=== PATIENT | male | born 1980 | race Caucasian/White ===

== ENCOUNTER 2024-08-22 15:52 | Emergency (ER) | payer OTHER, SELFPAY ==
[2024-08-22 15:54] VITALS: BP 153/81; PULSE 97; RESP 12; TEMP 36.8; O2SAT 99
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
[2024-08-22] MEDS: Acetaminophen 325 MG TAB 650 MG PO (16:19)
[2024-08-22] MEDS: Lidocaine/Epinephri/Tetracaine Topical Gel 3 ML TP (16:19)
--- OUTSIDE RECORDS SUMMARY | 2024-08-22 16:50 | XMS_ITS | Clinical Summary ---
Author Organization [facility] Address [address] [place] [address] Phone Care Team Providers Care Drafter Structural Name Role Phone Niesha LEAL, Maria De Jesus Rodgers [phone] Conditions or Problems Problem Name Problem Code Onset Date Status Entry Date Provider Comment Standard Description Annotate EUSTACHIAN TUBE DYSFUNCTION 96727336 (SNOMED CT) 06/06 Active 06/12 Maria De Jesus Scherer MD Dysfunction of eustachian tube SWIMMER'S EAR OF LEFT SIDE, UNSPECIFIED CHRONICITY 1806578 (SNOMED CT) 06/06 Inactive 06/12 Maria De Jesus Scherer MD Otitis externa RIGHT OTITIS MEDIA 78059535 (SNOMED CT) 01/09 Inactive 01/23 Catherine Adhikari STONE FINISHER Otitis media HEALTH CARE MAINTENANCE EXAM 354593681 (SNOMED CT) 12/02 Active 12/02 Sadia Werner MD Comprehensive interview and evaluation ONYCHOMYCOS IS 181975591 (SNOMED CT) Active Sadia Werner MD Onychomycosis CERVICAL RADICULOPAT HY 33508023 (SNOMED CT) Active Sadia Werner MD Cervical radiculopathy SEROUS OTITIS MEDIA H65.00 (ICD-10-CM ) 02/04 Inactive 02/05 Sadia Werner MD Acute serous otitis media, unspecified ear INFLUENZA 487.8 (ICD-9-CM) 12/02 Resolved 12/02 Sadia Werner MD Influenza with other manifestations INFLUENZA 487.8 (ICD-9-CM) 12/02 Removed 12/02 Sadia Werner MD Influenza with other manifestations HEALTH CARE MAINTENANCE 51107902 (SNOMED CT) 12/02 Inactive 12/02 Sadia Werner MD History AND physical examination Medications Medication Instructions Start Date Stop Date Generic Name NDC Provider VENTOLIN HFA 108 (90 Base) MCG/ACT AERS 1 puff four times a day as needed albuterol sulfate 19293216081 Maria De Jesus Scherer MD CIPRO HC 0.2-1 % SUSP Instill 3 drop into left ear twice a day ciprofloxacin-hyd rocortisone 00933522211 Maria De Jesus Scherer MD AMOXICILLIN-PO T CLAVULANATE 875-125 MG TABS Take 1 tablet by mouth twice a day with meals amoxicillin-pot clavulanate 00238634376 Catherine DiTommaso STONE FINISHER CICLOPIROX 8 % SOLN laquer to affected toenails every 7 days; then remove and reapply ciclopirox 29989961906 Sadia Werner MD ProAir HFA 90 mcg/actuation HFA aerosol inhaler 2 puff every four hours as needed albuterol sulfate 31426531385 Sadia Werner MD QVAR 40 MCG/ACT INHALATION AEROSOL SOLUTION 2 puff twice a day QVAR 40 MCG/ACT INHALATION AEROSOL SOLUTION Sadia Werner MD VENTOLIN HFA 108 (90 Base) MCG/ACT AERS 1 puff four times a day as needed albuterol sulfate 25986616210 Sadia Werner MD AUGMENTIN 875-125 MG ORAL TABLET Take one tablet by mouth twice daily AMOXICILLIN-POT CLAVULANATE 04700416671 Sadia Werner MD PROAIR HFA 108 (90 BASE) MCG/ACT INHALATION AEROSOL SOLUTION 2 puffs every 4 hours as needed for asthma ALBUTEROL SULFATE 77710608685 Sadia Werner MD QVAR 40 MCG/ACT INHALATION AEROSOL SOLUTION 2 puffs bid BECLOMETHASONE DIPROPIONATE 47585960610 Sadia Werner MD VENTOLIN HFA 108 (90 Base) MCG/ACT AERS one puff qid prn asthma ALBUTEROL SULFATE 40310993853 Sadia Werner MD AMOXICILLIN 500 MG CAPS take one by mouth three times daily AMOXICILLIN 18116808869 Sadia Werner MD CICLOPIROX 8 % SOLN laquer to affected toenails every 7 days; then remove and reapply CICLOPIROX 47502362766 Sadia Werner MD Medications Administered No information available. Allergies, Adverse Reactions, Alerts Observed No Known Drug Allergies at Results Date Name Value Unit Range Flag Description Lab Report: THYROXINE (T4) T4, TOTAL 7.20 ug/dL 4.50-10.90 Thyroxin e (T4) [Mass/volume] in Serum or Plasma Lab Report: GLUCOSE,FASTING BG FASTING 78 mg/dL 70-105 blood gluc ose, fasting Lab Report: IRON AND TIBC IRON SATUR % 24 % 17-50 Iron sat uration [Mass Fraction] in Serum or Plasma TIBC 291 ug/dL 151-538 Iron binding capacity [Mass/volume] in Serum or Plasma IRON 69 ug/dL 31-161 Iron [Mass/vo lume] in Serum or Plasma Lab Report: COMPLETE BLOOD C OUNT MPV 8.4 UM*3 fL 7.4-10.4 Platelet me an volume [Entitic volume] in Blood by Shashank RDW 13.4 % 11.5-14.5 Erythrocyte distribution width [Ratio] by Automated count MCHC 33.8 % 31.0-35.5 MCHC [Mass/ volume] by Automated count MCH 30.6 pg 26-34 MCH [Entitic mass] by Automated count MCV 90.5 fL 80-99 MCV [Entitic volume] by Automated count RBC 5.64 10*6/mm3 3.9-5.5 H Erythrocytes [#/volume] in Blood by Automated count BASOPH COUNT 0.0 10*3/mm3 0-0.30 Basophi ls [#/volume] in Blood by Manual count EOS COUNT 0.1 10*3/mm3 0-0.45 eosinophil count, blood MONOCYTE CNT 0.4 10*3/mm3 0-0.8 monocyt e count, blood LYMPH COUNT 1.6 10*3/mm3 1.5-4.0 lymphocy te count, blood NEUTRO COUNT 2.7 10*3/mm3 1.8-7.7 neutrop hil count, blood BASOPHIL % 0.5 % 0-3 Basophils/ 100 leukocytes in Blood by Manual count EOSINOPHIL % 3.1 % 0-8 Eosinoph ils/100 leukocytes in Blood by Manual count MONOCYTE % 8.9 % 0-12 Monocytes/ 100 leukocytes in Blood by Automated count LYMPHS % 32.1 % 20-44 Lymphocytes/ 100 leukocytes in Blood by Automated count PMN % 55.4 % 41-75 Neutrophils/1 00 leukocytes in Blood by Automated count PLATELETS 276 10*3/mm3 140-440 Platelets [#/volume] in Blood by Automated count HCT 51.0 % 39.8-52.0 Hematocrit [Volume Fraction] of Blood by Automated count HGB 17.3 g/dL 13.6-16.1 H Hemoglobin [Mass/volume] in Blood WBC 4.9 10*3/mm3 4.0-10.0 Leukocytes [#/volume] in Blood by Automated count Plan of Care Type Date Detail Pending order Patient encounte r procedure Pending order Patient encounte r procedure Pending order SARS COV 2 RT PC R Pending order Comprehensive Me tabolic Panel Pending order COMPLETE BLOOD C OUNT WITH DIFF Pending order [facility] Allergy [facility] Pending order Lipid Panel Pending order Complete Blood C ount (CBC) Pending order Basic Metabolic Panel Pending order TSH (w/reflex) Pending order Lipid Panel Pending order Comprehensive Me tabolic Panel Pending order Complete Blood C ount (CBC) Pending order Lipid Panel Pending order TSH (w/reflex) Procedures Code Procedure Name Date Entry Date [facility]-[id number] Patient encounter procedure COMMP Comprehensive Metabolic Panel CBCD COMPLETE BLOOD COUNT WITH DIFF [facility] - [place] LIPID Lipid Panel CBC Complete Blood Count (CBC) 2 TSH TSH (w/reflex) LIPID Lipid Panel BASMP Basic Metabolic Panel 03/19 TSH TSH (w/reflex) CBC Complete Blood Count (CBC) 2 COMMP Comprehensive Metabolic Panel LIPID Lipid Panel Vital Signs Date Name Value Unit Description BMI (Body Mass Index) 28.09 kg/m2 Bod y Mass Index (Ratio) BP Diastolic 68 mm[Hg] blood pressu re, diastolic BP Systolic 124 mm[Hg] blood pressur e, systolic Body Temperature 97.8 [degF] temperat ure E&M Heart Rate 65 /min pulse rate O2 % BldC Oximetry 98 pulse oximetry, first reading Weight Measured 222.4 [lb_av] weight E& M Height 74.75 [in_us] height E&M BP Diastolic 88 mm[Hg] blood pressu re, diastolic, second observation BP Systolic 130 mm[Hg] blood pressur e, systolic, second observation Immunizations Vaccine Administration Date Standard Description CVX Co de Dose flu vax flu vax 141 Unknown Pfizer COVID-19 Vaccine 208 U nknown Pfizer COVID-19 Vaccine 208 U nknown Pfizer COVID-19 Vaccine 208 U nknown Advance Directives No information available.
--- OUTSIDE RECORDS SUMMARY | 2024-08-22 16:51 | XMS_ITS | Encounter Summary ---
Author Organization [facility] Address [phone] [place] [address] Care Team Providers Care Repairer General Name Role Phone Catherine Pablo NP Unavailable [phone] Bertin Calzada MD Primary Care Provider Encounter Details Date Type Department Care Team (Late st Contact Info) Description 07/03/2024 1:15 PM EDT - 07/03/2024 11:59 PM EDT Hospital Encounter [facility] - Diagnostic Radiology, [address] [place] [phone] Radha Hyatt PA-C [address] [place] [phone] [email or web address] Discharge Disposition: Home or Self Care Social History Tobacco Use Types Packs/Day Years Used Date Smoking Tobacco: Never Smokeless Tobacco: Former Comments:A Cigarettes in hig h school and college Alcohol Use Standard Drinks/Week Comments Yes 3 (1 standard drink = 0.6 oz pure alcohol) Last year, around 1 drink a day. Now 1-2 drinks a week Education Answer Date Recorded Are you interested in more education? Not on sav e 04/01/2023 Are you concerned about learning? Not on file 04/01/2023 No 04/01/2023 No 04/01/2023 Digital Access Answer Date Recorded No 04/22/2023 No 04/22/2023 Reliable internet access at home? Not on file 04/22/2023 Device with a working camera? Not on file Sex and Gender Information Value Date Recorded Sex Assigned at Not on file Gender Identity Not on file Sexual Orientation Not on file documented as of this encounter Medications at Time of Discharge Medication Sig Dispensed Refills Start Date End Date fluticasone propionate 110 mcg/actuation inhaler Inhale 2 puffs into the lungs daily as needed. To be used when symptoms present for several days 12 g 04/17/2024 documented as of this encounter Plan of Treatment Upcoming Encounters Date Type Department Care Team (Late st Contact Info) Description 04/13/2025 10:30 AM EDT Appointment [facility] [address] [address] Bertin Calzada MD [address] [phone] [email or web address] 04/22/2025 10:30 AM EDT Office Visit [facility] [address] [place] [phone] Kianna Fermin MD [address] [place] [phone] [email or web address] documented as of this encounter Procedures Procedure Name Priority Date/Time Associated Diagnosis Comments XR KNEE 4 OR MORE VIEWS (RIGHT) Routine 07/03/2024 1:41 PM EDT Pain XR FEMUR (RIGHT) 2 VIEWS Routine 07/03/2024 1:41 PM EDT Pain documented in this encounter Results * XR KNEE 4 OR MORE VIEWS (RIGHT) (07/03/2024 1:41 PM EDT) Anatomical Region Laterality Modality Knee Right Radiographic Briana ging 07/03/2024 5:07 PM EDT Impressions 07/03/2024 5:08 PM EDT Prior open reduction and internal fixation of healed mid femoral fracture. Right knee joint effusion. No fracture. Narrative 07/03/2024 5:08 PM EDT XR FEMUR 2 OR MORE VIEWS (RIGHT), XR KNEE 4 OR MORE VIEWS (RIGHT) Referring clinician's provided indication for this examination in [facility]: Pain COMPARISON: FINDINGS: Postoperative sequelae of open reduction and internal fixation of the RIGHT femur by means of intramedullary breezy. Mild heterotopic ossification adjacent to the greater trochanter. The femoral fracture appears healed. Right hip is normally aligned. The sacrum is partially obscured by stool and bowel gas. 4 views of the RIGHT knee demonstrate joint effusion. No evidence of fracture. Normal alignment. Mild prepatellar soft tissue swelling. Frontal views of the LEFT knee demonstrate no acute osseous abnormality. Procedure Note Flaco Johnson MD - 07/03/2024 XR FEMUR 2 OR MORE VIEWS (RIGHT), XR KNEE 4 OR MORE VIEWS (RIGHT) Referring clinician's provided indication for this examination in [facility]:Pain COMPARISON: FINDINGS: Postoperative sequelae of open reduction and internal fixation of theRIGHT femur by means of intramedullary breezy. Mild heterotopic ossificationadjacent to the greater trochanter. The femoral fracture appears healed.Right hip is normally aligned. The sacrum is partially obscured by stooland bowel gas. 4 views of the RIGHT knee demonstrate joint effusion. No evidence offracture. Normal alignment. Mild prepatellar soft tissue swelling. Frontal views of the LEFT knee demonstrate no acute osseous abnormality. IMPRESSION: Prior open reduction and internal fixation of healed mid femoralfracture. Right knee joint effusion. No fracture. Radha Hyatt PA-C IMG XR LOWER EXTRE MITY * XR FEMUR (RIGHT) 2 VIEWS (07/03/2024 1:41 PM EDT) Anatomical Region Laterality Modality Thigh Right Radiographic Briana ging 07/03/2024 5:07 PM EDT Impressions 07/03/2024 5:08 PM EDT Prior open reduction and internal fixation of healed mid femoral fracture. Right knee joint effusion. No fracture. Narrative 07/03/2024 5:08 PM EDT XR FEMUR 2 OR MORE VIEWS (RIGHT), XR KNEE 4 OR MORE VIEWS (RIGHT) Referring clinician's provided indication for this examination in [facility]: Pain COMPARISON: FINDINGS: Postoperative sequelae of open reduction and internal fixation of the RIGHT femur by means of intramedullary breezy. Mild heterotopic ossification adjacent to the greater trochanter. The femoral fracture appears healed. Right hip is normally aligned. The sacrum is partially obscured by stool and bowel gas. 4 views of the RIGHT knee demonstrate joint effusion. No evidence of fracture. Normal alignment. Mild prepatellar soft tissue swelling. Frontal views of the LEFT knee demonstrate no acute osseous abnormality. Procedure Note Flaco Johnson MD - 07/03/2024 XR FEMUR 2 OR MORE VIEWS (RIGHT), XR KNEE 4 OR MORE VIEWS (RIGHT) Referring clinician's provided indication for this examination in Epic:Pain COMPARISON: FINDINGS: Postoperative sequelae of open reduction and internal fixation of theRIGHT femur by means of intramedullary breezy. Mild heterotopic ossificationadjacent to the greater trochanter. The femoral fracture appears healed.Right hip is normally aligned. The sacrum is partially obscured by stooland bowel gas. 4 views of the RIGHT knee demonstrate joint effusion. No evidence offracture. Normal alignment. Mild prepatellar soft tissue swelling. Frontal views of the LEFT knee demonstrate no acute osseous abnormality. IMPRESSION: Prior open reduction and internal fixation of healed mid femoralfracture. Right knee joint effusion. No fracture. Radha Hyatt PA-C IMG XR LOWER EXTRE MITY documented in this encounter Visit Diagnoses Diagnosis Pain Generalized pain documented in this encounter Additional Health Concerns Assessment Noted Time PHQ-2 Depression Total Score: 0 03/31/20 24 8:54 PM EDT documented as of this encounter Care Teams Repairer General Relationship Specialty Start Date End Date Bertin Calzada MD [address] [phone] [email or web address] PCP - General Internal Medicine 04/01/24 Catherine Pablo NP [address] [place] [phone] [email or web address] Insurance Assigned Provider 03/01/24 07/05/24 documented as of this encounter Additional Source Comments The information contained in this document represents components of the legal health record. It is not the complete legal health record.[facility]
--- OUTSIDE RECORDS SUMMARY | 2024-08-22 16:51 | XMS_ITS | Encounter Summary ---
Author Organization [facility] Address [phone] [place] [address] Care Team Providers Care Roll Plugger Name Role Phone Catherine Pablo NP Unavailable [phone] Bertin Calzada MD Primary Care Provider Encounter Details Date Type Department Care Team (Late st Contact Info) Description 05/15/2024 1:00 PM EDT [facility] [address] [address] Wendy Hassan, OD [address] [place] [address] [email or web address] Allergic conjunctivitis, bilateral (Primary Dx); Allergic conjunctivitis of both eyes Social History Tobacco Use Types Packs/Day Years [...] on file documented as of this encounter Progress Notes * Wendy Hassan, OD - 05/15/2024 1:00 PM EDT Assessment Allergic conjunctivitis - symptomatic, OS>OD Plan Patient recommended to use cold compress PRN, artificial tears qid both eyes and anti-allergy eye drops (Pataday qd both eyes). RTC if no improvement in 2 weeks. D/c antibiotic use. Follow Up Dr. Hassan for complete eye exam, PRN with any changes or problems. Ocular History Corneal abrasion left eye (10 y.a.) Cellulitis right eye (2 years ago) documented in this encounter Plan of Treatment Upcoming Encounters Date Type Department Care Team (Late st Contact Info) Description 04/13/2025 10:30 AM EDT Appointment [facility] [address] [address] Bertin Calzada MD [address] [address] [email or web address] 04/22/2025 10:30 AM EDT Office Visit [facility] [employer] [address] [address] Kianna Fermin MD [address] [place] [phone] [email or web address] documented as of this encounter Visit Diagnoses Diagnosis Allergic conjunctivitis, bilateral- Primary Other chronic allergic conjunctivitis Allergic conjunctivitis of both eyes Other chronic allergic conjunctivitis documented in this encounter Additional Health Concerns Assessment Noted Time PHQ-2 Depression Total Score: 0 03/31/20 24 8:54 PM EDT documented as of this encounter Care Teams Roll Plugger Relationship Specialty Start Date End Date Bertin Calzada MD [address] [address] [email or web address] PCP - General Internal Medicine 04/01/24 Catherine Pablo NP [address] [place] [phone] [email or web address] Insurance Assigned Provider 03/01/24 07/05/24 documented as of this encounter Additional Source Comments The information contained in this document represents components of the legal health record. It is not the complete legal health record.[facility]
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
--- OUTSIDE RECORDS SUMMARY | 2024-08-22 16:52 | XMS_ITS | Encounter Summary ---
Author Organization [facility] Address [address] [place] [address] Care Team Providers Care Rfid Systems Architect Name Role Phone Pcp, No Unavailable Unavailable Reason for Visit * Reason Comments Otalgia Encounter Details Date Type Department Care Team (Latest Contact Info) Description 06/12/2022 3:05 PM EDT - 06/12/2022 4:14 PM EDT Hospital Encounter [facility] [address] [place] [phone] Discharge Disposition: Home or Self Care Social History Tobacco Use Types Packs/Day Years Used Date Smoking Tobacco: Never Smokeless Tobacco: Never Sex and Gender Information Value Date Recorded Sex Assigned at Not on file Gender Identity Not on file Sexual Orientation Not on file documented as of this encounter Last Filed Vital Signs Vital Sign Reading Time Taken Comments Blood Pressure 136/71 06/12/2022 3:09 PM EDT Pulse 51 06/12/2022 3:09 PM EDT Temperature 36.3 ??C (97.3 ??F) 06/12/2022 3:09 PM ED T Respiratory Rate 16 06/12/2022 3:09 PM EDT Oxygen Saturation 100% 06/12/2022 3:09 PM EDT Inhaled Oxygen Concentration 100% 06/12/2022 3 :09 PM EDT Weight 99.8 kg (220 lb) 06/12/2022 3:09 PM EDT Height 190.5 cm (6' 3) 06/12/2022 3:09 PM EDT Body Mass Index 27.5 06/12/2022 3:09 PM EDT documented in this encounter Discharge Instructions * Attachments The following attachments cannot be sent through Care Everywhere. * Serous Otitis Media (Somali) documented in this encounter ED Notes * Winnie Becerra RN - 06/12/2022 4:13 PM EDT Discharged by provider * Federico Del Cid NP - 06/12/2022 3:49 PM EDT History Chief Complaint Patient presents with ??? Otalgia Chief Complaint:lesft ear pain This 42 yo male presents with a c/o left ear pain for a couple weeks.Hearing is somewhat muffled. Denies pain when ear is pulled. He was seen by his PCP last week who reported an effusion to the ear and was told to take Sudafed. He has been taking this daily and it has been providing some relief until today. He was also started on flonase last week and has taken certrizine for a number of months.He had an ear infection last October. Positive for sinus and ear pressure L>R. Denies cough, ear drainage or sinus drainage. Denies fever or chills. History reviewed. No pertinent past medical history. Past Surgical History: Procedure Laterality Date ??? HX FEMUR FRACTURE SURGERY Right No family history on file. Social History Tobacco Use ??? Smoking status: Never Smoker ??? Smokeless tobacco: Never Used Review of Systems Constitutional: Negative for chills and fever. HENT: Positive for ear pain, hearing loss and sinus pressure. Negative for congestion, ear discharge, facial swelling, postnasal drip, sinus pain, sore throat and tinnitus. Eyes: Negative for itching. Respiratory: Negative for cough and shortness of breath. Cardiovascular: Negative for palpitations. Musculoskeletal: Negative for joint swelling. Skin: Negative for rash. Allergic/Immunologic: Negative for environmental allergies. Neurological: Negative for headaches. Psychiatric/Behavioral: Negative for confusion. Physical Exam Triage Vitals [06/12/22 1509] Temperature Heart Rate BP Respirations SpO2 36.3 ??C (97.3 ??F) 51 136/71 16 100 % Physical Exam Constitutional: Appearance: Normal appearance. He is normal weight. He is not ill-appearing. HENT: Head: Normocephalic and atraumatic. Right Ear: Tympanic membrane, ear canal and external ear normal. There is no impacted cerumen. Left Ear: Ear canal and external ear normal. A middle ear effusion is present. There is no impactedcerumen. Tympanic membrane is not erythematous. Ears: Comments: TM willett and loose appearing. No perforation or drainage noted. Nose: Nose normal. No congestion. Mouth/Throat: Mouth: Mucous membranes are moist. Pharynx: Oropharynx is clear. No oropharyngeal exudate or posterior oropharyngeal erythema. Eyes: Pupils: Pupils are equal, round, and reactive to light. Cardiovascular: Rate and Rhythm: Normal rate. Pulmonary: Effort: Pulmonary effort is normal. Musculoskeletal: Cervical back: Normal range of motion. Skin: General: Skin is warm and dry. Neurological: Mental Status: He is alert and oriented to person, place, and time. Studies / ED Course Procedures MDM (ED Course and Disposition) Assessment and Plan This is a 42 y.o. male with left ear pain. MDM: This well appearing afebrile male presents c/o ongoing left ear pain for the past 2 weeks. Use of Sudafed and flonase since visit with PCP last week provided some relief to the pain and pressure until today. Exam unremarkable for infection, perforation or other complication at this time. Still has a mild effusion. Patient appears stable for discharge and verbalized understanding of home care, follow-up with PCP and ENT, and return precautions. ED CRITICAL CARE: Critical Care: No Diagnosis: Encounter Diagnosis Name Primary? Acute serous otitis media of left ear, recurrence not specified Yes Disposition: Discharged Federico Del Cid NP 06/12/221930 Sia Bautista MD 06/13/22 0456 Associated attestation - Sia Bautista MD - 06/13/2022 4:56 AM EDT Patient seen by Emergency Department Nurse Practitioner Federico Del Cid NP. I agree with the disposition and plan as documented. * Winnie Becerra RN - 06/12/2022 3:24 PM EDT Three plus weeks of left ear discomfort. Saw PCP last week. Has taken sudafed, then PCP prescribed cipro ear drops. Now continues with dull pain, fullness. documented in this encounter Plan of Treatment Not on file documented as of this encounter Visit Diagnoses Diagnosis Acute serous otitis media of left ear, recurrence not specified- Primary documented in this encounter Care Teams Rfid Systems Architect Relationship Specialty Start Date End Date Pcp, No PCP - Generic [facility] PCP 06/12/22 documented as of this encounter
--- OUTSIDE RECORDS SUMMARY | 2024-08-22 16:52 | XMS_ITS | Encounter Summary ---
Author Organization [employer] [facility] Address [address] [place] [address] Care Team Providers Care Manager Online Name Role Phone Sadia Werner MD Primary Care Provide r Reason for Visit * Reason Comments Eyes Encounter Details Date Type Department Care Team (Late st Contact Info) Description 02/27/2023 10:10 AM EDT Office Visit [id number] [address] [place] [address] Liza Gifford NP [address] [place] [address] Hordeolum internum of right upper eyelid [H00.021] (Primary Dx) Social History Tobacco Use Types Packs/Day Years Used Date Smoking Tobacco: Never Smokeless Tobacco: Never Tobacco Cessation:Counseling Given: Not Answered Sex and Gender Information Value Date Recorded Sex Assigned at Not on file Gender Identity Not on file Sexual Orientation Not on file documented as of this encounter Last Filed Vital Signs Vital Sign Reading Time Taken Comments Blood Pressure 118/78 02/27/2023 10:33 AM EDT Pulse 62 02/27/2023 10:33 AM EDT Temperature 36.6 ??C (97.8 ??F) 02/27/2023 10:33 AM E DT Respiratory Rate 16 02/27/2023 10:33 AM EDT Oxygen Saturation 99% 02/27/2023 10:33 AM EDT Inhaled Oxygen Concentration - - Weight - - Height - - Body Mass Index - - documented in this encounter Functional Status Functional Status Response Date of Assess ment Is the person deaf or does h e/she have serious difficulty hearing? Is this person blind or does he/she have serious difficulty seeing even when wearing glasses? Does this person have seriou s difficulty walking or climbing stairs? Does this person have difficulty dressing or bat amandeep? Because of a physical, menta l, or emotional condition, does this person have difficulty doing errands alone such as visiting a doctor's office or shopping? Cognitive Status Response Date of Assessm ent Because of a physical, menta l, or emotional condition, does this person have serious difficulty concentrating, remembering, or making decisions? documented as of this encounter Patient Instructions * Patient Instructions* Liza Gifford NP - 02/27/2023 10:10 AM EDT Images from the original note were not included. /[id number] Minor Eye Disorders Seek immediate medical care if you have: ??? Vision changes ??? Pain in the eye or feeling like something is in your eye ??? Photophobia (sensitive to light) ??? New or increased eye discharge What is a stye? A stye (hordeolum) is a bacterial infection of the tiny glands at the base of an eyelid. Styes are more commonly seen in children and adolescents. What causes styes? They are typically caused by bacteria and may develop due to poor hygiene habits, using cosmetics, or leaving eye makeup on overnight. What are the symptoms of a stye? Tenderness ??? Redness and swelling of the eyelid. ??? Often a red bump is visible on the eyelid ??? There can be itching and burning of the eyelid. What is blepharitis? Blepharitis is a chronic (long-term) inflammatory condition that affects the eyelids. What are the symptoms of blepharitis? Itching, burning, crusting and scaling along eyelid border. What is a chalazion? A chalazion is a hard, painless bump that gradually develops on the eyelid over a few weeks??? time. It often occurs on the upper lid. What is the treatment for styes, blephartitis and chalazions? The most common treatment is good eyelid hygiene (cleansing with mild soap such as diluted baby shampoo four times per day). ??? Warm, moist compresses can also be used on the affected eye(s) for 15 minutes, four times per day. o If you are treating both eyes, use separate clean compresses ??? Sometimes antibiotic ointment will be prescribed, be sure to continue the medicine for as long as it is prescribed. o If prescribed antibiotic eye ointment or eye drops, try not to touch the dropper bottle or tip ofthe tube to the eye. By doing so, you prevent contaminating the medication application device. ??? Perform good hand hygiene and keep hands away from your eyes to prevent spreading the infection. ??? Do not squeeze a stye. This may cause the infection to spread to the tissue around the eye. ??? If you wear contact lenses, stop wearing contacts during an infection. Do not resume wearing contacts until the eye infection is resolved and/or you have finished your antibiotics. Seek immediate emergency medical attention: for changes in vision, eye pain, sensitivity to light, increased drainage, difficulty swallowing, stiff neck, shortness of breath, coughing up blood, chestpain or increased fever. Seek medical attention immediately if redness spreads or your eyelid swells quickly. Go immediately to ER for visual changes, increased pain in the eye, sensitivity to light with othersymptoms, or increase in eye discharge. documented in this encounter Progress Notes * Liza Gifford NP - 02/27/2023 10:10 AM EDT Subjective: Patient ID: Martin Vicente is a 42 y.o. male. HPI Here with stye in right eye upper eye lid that started Sunday02/24/23 Also had stye on right lower eyelid that started at the same time but reports that that one has resolved Is otherwise well and denied additional concerns Used refresh with some improvement in dryness Denied fever or feeling feverish Had white discharge on lower stye- resolved Does not wear glasses or contacts Eyes Patient presents with: stye Chronicity: New Affected eye: Right eye Duration of current symptoms: 4 days Frequency: Constant Timing: Gradually worsening Related to injury?: No Associated symptoms: eye itching, eye swelling (eyelid swelling ), eye tearing and stye Associated symptoms: no blind spots, no blurred vision, no decreased vision, no decreased visual acuity, no distorted vision, no double vision, no flashing lights, no floaters, no fluctuating vision,no hazy vision, no transient vision loss, no vision loss, no limited eye movement, no eye pain, no foreign body sensation, no foreign body, no bruising, no discharge, no photophobia, no eye redness, no rash, no aura, no headache, no migraine headaches, no nausea, no numbness, no tingling, no vomiting, no weakness, no sinusitis, no postnasal drip and no recent URI Review of Systems Constitutional: Negative for chills, diaphoresis and fever. HENT: Negative for postnasal drip. Eyes: Positive for itching. Negative for blurred vision, double vision, photophobia, pain, discharge, redness and visual disturbance. Respiratory: Negative for shortness of breath. Cardiovascular: Negative for chest pain. Gastrointestinal: Negative for nausea and vomiting. Musculoskeletal: Negative for neck pain and neck stiffness. Skin: Negative for rash. Neurological: Negative for dizziness, weakness, light-headedness and headaches. Social History Tobacco Use Smoking Status Never Smokeless Tobacco Never History reviewed. No pertinent past medical history. Past Surgical History: Procedure Laterality Date ??? FEMUR SURGERY No family history on file. Objective: Physical Exam Constitutional: Appearance: Normal appearance. HENT: Head: Normocephalic and atraumatic. Eyes: General: Right eye: Hordeolum present. No foreign body or discharge. Left eye: No foreign body, discharge or hordeolum. Extraocular Movements: Extraocular movements intact. Right eye: Normal extraocular motion and no nystagmus. Left eye: Normal extraocular motion and no nystagmus. Conjunctiva/sclera: Conjunctivae normal. Right eye: Right conjunctiva is not injected. No chemosis, exudate or hemorrhage. Left eye: Left conjunctiva is not injected. No chemosis, exudate or hemorrhage. Pupils: Pupils are equal, round, and reactive to light. Comments: Mild erythema and swelling noted around stye of right upper eyelid. No pain upon palpation. No periorbital swelling. No drainage noted. No streaks. PERRLA Cardiovascular: Rate and Rhythm: Normal rate and regular rhythm. Heart sounds: Normal heart sounds. Pulmonary: Effort: Pulmonary effort is normal. No respiratory distress. Breath sounds: Normal breath sounds. Musculoskeletal: Cervical back: Normal range of motion. No rigidity. Skin: General: Skin is warm and dry. Neurological: Mental Status: He is alert and oriented to person, place, and time. Psychiatric: Mood and Affect: Mood normal. Behavior: Behavior normal. Vitals: 02/27/23 1033 BP: 118/78 Pulse: 62 Resp: 16 Temp: 97.8 ??F (36.6 ??C) SpO2: 99% Assessment/Plan: Based on today's visit:history and physical exam only, as no relevant testing deemed necessary patient's visit diagnosis is/includes 1. Hordeolum internum of right upper eyelid [H00.021] Patient does not have a history of chronic conditions identified today Treatment plan includes: Orders Placed: No orders of the defined types were placed in this encounter. Medications ordered this visit Signed Prescriptions Disp Refills ??? ciprofloxacin HCl (CILOXAN) 0.3 % ophthalmic solution 5 mL 0 Si-2 drops in affected eye every 2 hrs while awake for 2 days then every 4 hours while awake for the next 5 days. Current medication list and any new medications prescribed or recommended today were reviewed with the patient and specific instructions were provided Yes Provider Recommendations Patient education Most styes tend to resolve within a week, and tend to improve rapidly once the pus has been drainedaway. OTC pain relievers ibuprofen or Tylenol as directed on box supply may also be taken for discomfort. Avoid touching tip of medication to eye. After using medication for 24 hours, change pillow cases, towels, eye products, and anything else that comes into contact with eyes. Warm or cool compresses, 5-10 minutes 4 times/day with as needed for comfort and until affected site drains. Good hand hygiene. Avoid touching or itching eyes. Eyelid hygiene by cleansing with mild soap. Advised to use a fresh, clean cloth each time. Do not apply eye makeup or lotions until the stye is resolved. Advised to follow-up with PCP or local urgent care with any worsening signs/symptoms, or no improvement with treatment plan within 72 hours. Seek immediatemedical care if you have: ??? Vision changes ??? Pain in the eye or if it feels like something is in your eye (foreign body sensation) ??? Photophobia (sensitive to light) ??? Increase in eye discharge ??? Increased swelling or redness around the eye Discussed with and provided patient/guardian with written instructions regarding diagnosis, treatment plan, recommended follow-up, and signs and symptoms that warrant immediate evaluation and treatment. ?? Informed patient/guardian on indications, proper administration, and possible adverse reactions of prescribed or recommended medications. ? At completion of this visit, the patient verbally demonstrates understanding of diagnosis, treatment plan, recommended follow-up, and has no remaining questions or concerns. Follow up care instructions were provided to and reviewed with the Patient. All questions answered.Patient verbalized understanding of plan of care today. HPI Section HPI provided by Patient I am having Martin Vicente start on ciprofloxacin HCl. documented in this encounter Plan of Treatment Not on file documented as of this encounter Visit Diagnoses Diagnosis Hordeolum internum of right upper eyelid [H00.021]- Primary documented in this encounter Care Teams Manager Online Relationship Specialty Start Date End Date Sadia Werner MD [facility] [address] [place] [phone] PCP - General Internal Medicine 02/27/23 documented as of this encounter
--- OUTSIDE RECORDS SUMMARY | 2024-08-22 16:52 | XMS_ITS | Clinical Summary ---
Author Organization [facility] Address [address] [place] [address] Care Team Providers Care Practice Clinician Name Role Phone Pcp, No Unavailable Unavailable Allergies No known active allergies Medications No known medications Social History Tobacco Use Types Packs/Day Years Used Date Smoking Tobacco: Never Smokeless Tobacco: Never Sex and Gender Information Value Date Recorded Sex Assigned at Not on file Gender Identity Not on file Sexual Orientation Not on file Last Filed Vital Signs Vital Sign Reading [...] Mass Index 27.5 06/12/2022 3:09 PM EDT Plan of Treatment Health Maintenance Due Date Last Done Comments Depression Screening 1992 HIV Screening with Documented Verbal Consent 1995 Hepatitis C Screening 1998 Lipid Screening 2015 TDAP/TD Vaccine 18+ 07/03/2021 07/03/2011, 01/08/2003, 11/09/1994 COVID-19 Vaccine ( season) 2024 Influenza Vaccine (#1) 2024 Hepatitis B Vaccines Completed 05/10/1995, 12/27/1994, 11/09/1994 Pneumococcal: Peds (0-5y) OR At-Risk Patient (6-64y) Aged Out No longer elisirenab monie based on patient's age to complete this topic Care Teams Practice Clinician Relationship Specialty Start Date End Date Pcp, No PCP - Generic [facility] PCP 06/12/22
--- OUTSIDE RECORDS SUMMARY | 2024-08-22 16:52 | XMS_ITS | Encounter Summary ---
Author Organization [facility] Address [phone] [facility] [place] [address] Care Team Providers Care Spreader Operator Name Role Phone Catherine Pablo NP Unavailable Bertin Calzada MD Primary Care Provider Reason for Referral * Consultation (Elective) - Pending Review Specialty Diagnoses / Procedures Referred By Contac t Referred To Contact Dermatology Bertin Calzada MD [address] [address] Email: Kianna Fermin MD [address] [place] [phone] Email: Referral ID Status Reason Start Date Expiration Date V isits Requested Visits Authorized [id number] Pending Review 04/09/2024 04/09/2025 6 6 * Consultation (Elective) - Pending Review Specialty Diagnoses / Procedures Referred By Contac t Referred To Contact Gastroenterology Bertni Calzada MD [address] [address] Email: NW Parent [address] [place] [address] Referral ID Status Reason Start Date Expiration Date V isits Requested Visits Authorized [id number] Pending Review 04/01/2024 04/01/2025 1 1 Reason for Visit * Reason Comments Annual Exam Encounter Details Date Type Department Care Team (Late st Contact Info) Description 04/01/2024 3:30 PM EDT Office Visit [facility] [address] [address] Bertin Calzada MD [address] [address] Routine adult health maintenance (Primary Dx); Need for hepatitis C screening test; Screening for human immunodeficiency virus; Onychomycosis; Seasonal allergies; Mild intermittent asthma without complication Social History Tobacco Use Types Packs/Day Years Used Date Smoking Tobacco: Never Smokeless Tobacco: Former Tobacco Cessation:Counseling Given: Not Answered Comments:A Cigarettes in high school and college Alcohol Use Standard Drinks/Week [...] Sign Reading Time Taken Comments Blood Pressure 110/74 04/01/2024 3:33 PM EDT Pulse 59 04/01/2024 3:33 PM EDT Temperature - - Respiratory Rate - - Oxygen Saturation 98% 04/01/2024 3:33 PM EDT Inhaled Oxygen Concentration - - Weight 104.3 kg (230 lb) 04/01/2024 3:33 PM EDT Height 189.9 cm (6' 2.75) 04/01/2024 3:33 PM ED T Body Mass Index 28.94 04/01/2024 3:33 PM EDT documented in this encounter Patient Instructions * Patient Instructions* Bertin Calzada MD - 04/01/2024 3:30 PM EDT If you do not hear from the specialists below within next 1-2 weeks, please call to schedule Dermatology Providers Practice Address Phone MD Rolf Altamirano MD, MD, MD, MD [facility] [address] [place], [place] [phone] MD Kati Martin MD [facility] [phone] Pebbles Fermin MD [facility] 20 [facility] G15, [facility] [phone] Tommy Ledezma [address] [phone] MD Elizabet Jasso MD, MD Ellen Lacomis, MD Jessica Mosher MD Pamela Norden MD Dylan Waterman MD [facility] 1 [facility] [phone] Tera Hong MD [facility] 65 [facility] 440 [place] [phone] Jim Dale MD [facility] 65 [facility] [address] [place] [phone] Joyce Nunez MD [facility] 1172 [facility] 402 [place] [phone] Evelin Francisco MD [facility] [address] [address] [phone] Neli Ochoa MD [facility] [address] [place], [place] 2, [place] [phone] Bertin Loomis MD [facility] [address] [facility] [address], [facility] 340 [facility] [address], [place] [phone] Smita Leonardo MD, [facility] 332 [facility] [phone] Danelle Rosado [facility] [address] [place] [address], [place] [address] [phone] If you do not hear from the GI department below within next 1-2 weeks, please call to schedule Gastroenterology Providers Practice Address Phone MD Kenyon Spivey MD Richard Curtis, MD Vera Denmark, MD Daria Homenko MD Elissa Kaplan, MD Dennis Lee, MD Benjamin Levitzky, MD Michael O'Donnell MD [facility] [place] [address] [phone] documented in this encounter Progress Notes * Bertin Calzada MD - 04/01/2024 3:30 PM EDT History of Present Illness PCP: Beritn Calzada MD Martin Vicente is a 44 y.o. patient here for a CPE and to establish care Extremely pleasant 44-year-old male here to establish care Last PCP was Brody Werner in [facility] Overall, no significant complaints today, and is looking to reestablish care Patient Active Problem List Diagnosis Date Noted Routine adult health maintenance 04/01/2024 Seasonal allergies 04/02/2024 Mild intermittent asthma without complication 04/02/2024 Onychomycosis 08/28/2016 Past Medical History: Diagnosis Date Allergic rhinitis Really in my 20's I take claritin but do need to revisit ue of inhalers for asthma maintenance - used to larry albuterol and qvar. 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 Cervical radiculopathy 08/28/2016 Eustachian tube dysfunction 06/06/2022 Heart murmur in youth was present but unnecessary to treat Review of Systems Constitutional: Negative for unexpected weight change. Respiratory: Negative for cough and shortness of breath. Cardiovascular: Negative for chest pain and palpitations. Gastrointestinal: Negative for abdominal pain, blood in stool, constipation and diarrhea. Genitourinary: Negative for difficulty urinating and hematuria. Skin: Negative for rash. Neurological: Negative for dizziness and headaches. Current Outpatient Medications Ordered in [facility] Medication Sig beclomethasone (QVAR REDIHALER) 40 mcg/actuation inhaler Inhale 2 puffs into the lungs 2 (two) times a day. To be used when symptoms present for several days No Known Allergies Family Hx: Family Hx reviewed Family History Problem Relation Age of Onset Breast cancer Mother Atrial fibrillation Father Colon cancer Neg Hx Social History Socioeconomic History Marital status: /Civil Union Spouse name: Not on file Number of children: Not on file Years of education: Not on file Highest education level: Not on file Occupational History Not on file Tobacco Use Smoking status: Never Smokeless tobacco: Former Tobacco comments: A Cigarettes in high school and college Vaping Use Vaping Use: never used Substance and Sexual Activity Alcohol use: Yes Alcohol/week: 3.0 standard drinks of alcohol Types: 1 Glasses of wine, 1 Cans of beer, 1 Shots of liquor per week Comment: Last year, around 1 drink a day. 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 HENT: Right Ear: Tympanic membrane normal. Left Ear: Tympanic membrane normal. Eyes: Extraocular Movements: Extraocular movements intact. Conjunctiva/sclera: Conjunctivae normal. Cardiovascular: Rate and Rhythm: Normal rate and regular rhythm. Pulmonary: Effort: Pulmonary effort is normal. Breath sounds: Normal breath sounds. No wheezing or rales. Abdominal: General: There is no distension. Tenderness: There is no abdominal tenderness. Musculoskeletal: General: Normal range of motion. Skin: Comments: Several lentigines on back Neurological: General: No focal deficit present. Mental Status: He is alert and oriented to person, place, and time. ASSESSMENT/PLAN: Problem List Items Addressed This Visit High Routine adult health maintenance - Primary Screening/ Maintenance Depression Screen 03/31/2024 8:54 PM PROMS PHQ-2 Little interest or pleasure in doing things Not at all Feeling down, depressed, or hopeless Not at all PROMs Patient Health Questionnaire Screening Score (PHQ-2) 0 (Minimal-No Depressive Symptoms) HIV Screening/ HCV Screening Lab Results Component Value Date [id number] Negative 04/01/2024 Lab Results Component Value Date HCV ANTIBODY Negative 04/01/2024 ASCVD Overall Risk, Prevention This SmartLink has been updated to reference the ASCVD 2013 equation and not the 2018 equations. The 10-year ASCVD risk score (Laron CARPIO, et al., 2019) is: 0.7% Values used to calculate the score: Age: 44 years Sex: Male Is Non- : No Diabetic: No Tobacco smoker: No Systolic Blood Pressure: 110 mmHg Is BP treated: No HDL Cholesterol: 67 mg/dL Total Cholesterol: 170 mg/dL Prostate Cancer Screening No results found for: PSA, PSATOTSCRN, PSAMON Colorectal Cancer Screening: Will refer for CLS (eligible at age 45; this indicated in referral request), No reported changes inFamily Hx Lung Cancer Screening: Not a candidate Osteoporosis Screening: N/A Immunizations: Advised to stay up to date with yearly COVID and Flu Shots Today, will receive Teanus Refused: None Rest up to Date Diabetes- Screening Hba1c AAA Screening- N/A Skin- Advised to see lithographic stripper at least once per year- referred to derm 2/2 light skin, lentigenes on back Advised to wear seatbelt, use sunscreen and exercise for 150min/wk moderate intensity exercise or 75min/wk of intense exercise Family Hx reviewed Follows routinely with dentist No guns or reported violence at home Relevant Orders CBC and differential (Completed) Comprehensive metabolic panel (Completed) Hemoglobin A1c (Completed) Lipid panel (Completed) TSH with reflex (Completed) Low Mild intermittent asthma without complication Relevant Medications beclomethasone (QVAR REDIHALER) 40 mcg/actuation inhaler Seasonal allergies Allergy/mild asthma it appears like exacerbated by allergy season Last several years, has sparingly used Qvar to help short spurts during allergy season which has been very effective Has used as needed albuterol in past, which made him feel agitated Inquiring about refill Will send to pharmacy Unprioritized Onychomycosis Will continue to apply topical antifungals Other Visit Diagnoses Need for hepatitis C screening test Relevant Orders Hepatitis C antibody, qualitative (Completed) Screening for human immunodeficiency virus Relevant Orders HIV-1/2 antigen/antibody (Completed) Martin will return to clinic in one year , sooner if needed Bertin Calzada MD documented in this encounter Miscellaneous Notes * Assessment & Plan Note - Bertin Calzada MD - 04/02/2024 5:06 AM EDT Associated Problem(s): Seasonal allergies Allergy/mild asthma it appears like exacerbated by allergy season Last several years, has sparingly used Qvar to help short spurts during allergy season which has been very effective Has used as needed albuterol in past, which made him feel agitated Inquiring about refill Will send to pharmacy * Assessment & Plan Note - Bertin Calzada MD - 04/02/2024 5:02 AM EDT Associated Problem(s): Onychomycosis Will continue to apply topical antifungals * Assessment & Plan Note - Bertin Calzada MD - 04/02/2024 5:01 AM EDT Associated Problem(s): Routine adult health maintenance Screening/ Maintenance Depression Screen 03/31/2024 8:54 PM PROMS PHQ-2 Little interest or pleasure in doing things Not at all Feeling down, depressed, or hopeless Not at all PROMs Patient Health Questionnaire Screening Score (PHQ-2) 0 (Minimal-No Depressive Symptoms) HIV Screening/ HCV Screening Lab Results Component Value Date [id number] Negative 04/01/2024 Lab Results Component Value Date HCV ANTIBODY Negative 04/01/2024 ASCVD Overall Risk, Prevention This SmartLink has been updated to reference the ASCVD 2013 equation and not the 2018 equations. The 10-year ASCVD risk score (Laron CARPIO, et al., 2019) is: 0.7% Values used to calculate the score: Age: 44 years Sex: Male Is Non- : No Diabetic: No Tobacco smoker: No Systolic Blood Pressure: 110 mmHg Is BP treated: No HDL Cholesterol: 67 mg/dL Total Cholesterol: 170 mg/dL Prostate Cancer Screening No results found for: PSA, PSATOTSCRN, PSAMON Colorectal Cancer Screening: Will refer for CLS (eligible at age 45; this indicated in referral request), No reported changes inFamily Hx Lung Cancer Screening: Not a candidate Osteoporosis Screening: N/A Immunizations: Advised to stay up to date with yearly COVID and Flu Shots Today, will receive Teanus Refused: None Rest up to Date Diabetes- Screening Hba1c AAA Screening- N/A Skin- Advised to see lithographic stripper at least once per year- referred to derm 2/2 light skin, lentigenes on back Advised to wear seatbelt, use sunscreen and exercise for 150min/wk moderate intensity exercise or 75min/wk of intense exercise Family Hx reviewed Follows routinely with dentist No guns or reported violence at home documented in this encounter Plan of Treatment Upcoming Encounters Date Type Department Care Team (Late st Contact Info) Description 04/13/2025 10:30 AM EDT Appointment [facility] [address] [address] Bertin Calzada MD [address] [address] [email or web address] 04/22/2025 10:30 AM EDT Office Visit [email or web address] [address] [address] Kianna Fermin MD [address] [place] [phone] [email or web address] Scheduled Referrals Name Type Priority Associated Diagnoses Order Schedule Ambulatory referral to [facility] Gastroenterology Outpatient Referral Routine Ordered: 04/01/2024 Ambulatory referral to [facility] Dermatology Outpatient Referral Routine Ordered: 04/01/2024 documented as of this encounter Results * HIV-1/2 antigen/antibody (04/01/2024 5:07 PM EDT) [facility] HIV 1/2 AB/AG Negative Negative [facility] Comment:Test Methodology Raúl he e801 Blood 04/01/2024 5:07 PM EDT 04/01/2024 6:33 PM EDT Bertin Calzada MD LAB BLOOD ORDER ALLIE [facility] [address] [place] [address] * Hepatitis C antibody, qualitative (04/01/2024 5:07 PM EDT) [facility] HCV ANTIBODY Negative Negative [facility] Comment:Test Methodology Raúl he e801 Blood 04/01/2024 5:07 PM EDT 04/01/2024 6:33 PM EDT Bertin Calzada MD LAB BLOOD ORDER ALLIE Performing Organization Address [facility] de Phone Number [facility] [address] [place] [address] * TSH with reflex (04/01/2024 5:07 PM EDT) SCREENING PANEL: TSH 3.36 0.55 - 4.78 uIU/mL [facility] Blood 04/01/2024 5:07 PM EDT 04/01/2024 6:33 PM EDT Bertin Calzada MD LAB BLOOD ORDER ALLIE Performing Organization Address [facility] de Phone Number [facility] [address] [place] [address] * Lipid panel (04/01/2024 5:07 PM EDT) CHOLESTEROL 170 140 - 200 mg/dL [facility] Comment: Desirable: <200 Borderline: 200-239 High: >239 TRIGLYCERIDES 89 0 - 149 mg/dL [facility] Comment: Normal ?<150 mg/dL Border-High ? 150-199 mg/dL High Triglycerides ?200-499 mg/dL Very High Triglycerides ? >=500 mg/dL HDL 67 >40 mg/dL [facility] Comment: Recommendations according to the National Cholesterol Education Program Guidelines: <40 mg/dL: Low (Major risk factor for CHD) >= 60 mg/dL: High (Negative risk factor for CHD) CALCULATED LDL 85 0 - 129 mg/dL [facility] NON-HDL CHOLESTEROL 103 mg/dL [facility] CARDIAC RISK RATIO 2.5 0 - 5 [facility] Blood 04/01/2024 5:07 PM EDT 04/01/2024 6:33 PM EDT Bertin Calzada MD LAB BLOOD ORDER ALLIE Performing Organization Address [facility] de Phone Number [facility] [address] [place] [address] * Hemoglobin A1c (04/01/2024 5:07 PM EDT) HEMOGLOBIN A1C 5.6 4.3 - 5.6 % [facility] Comment: ? Normal 4.3-5.6% Prediabetes 5.7-6.4% Diagnostic for diabetes >6.5% CALC MEAN BLD GLUC 114 mg/dL [facility] Blood 04/01/2024 5:07 PM EDT 04/01/2024 6:33 PM EDT Bertin Calzada MD LAB BLOOD ORDER ALLIE Performing Organization Address [facility] Co de Phone Number [facility] [address] [place] [address] * (ABNORMAL) Comprehensive metabolic panel (04/01/2024 5:07 PM EDT) SODIUM 141 136 - 145 mmol/L [facility] POTASSIUM 4.5 3.5 - 5.2 mmol/L [facility] CHLORIDE 102 95 - 106 mmol/L [facility] CO2 30 20 - 31 mmol/L [facility] BUN 18 9 - 23 mg/dL [facility] CREATININE 1.20 0.50 - 1.30 mg/dL [facility] GLUCOSE 82 74 - 106 mg/dL [facility] ALBUMIN 5.0(H) 3.5 - 4.8 g/dL [facility] TOTAL PROTEIN 7.8 5.7 - 8.2 g/dL [facility] CALCIUM 10.0 8.7 - 10.4 mg/dL [facility] ALKALINE PHOSPHATASE 72 27 - 129 U/L [facility] TOTAL BILIRUBIN 0.4 0.0 - 1.0 mg/dL [facility] AST 30 6 - 40 U/L [facility] ALT 19 10 - 49 U/L [facility] GLOBULIN 2.8 1.9 - 4.1 g/dL [facility] EGFR 76 >60 mL/min/1.7 3m2 [facility] Comment:Estimated glomerular filtration rate calculated using the CKD-EPI refit equation. ANION GAP 9 3 - 17 mmol/L [facility] Blood 04/01/2024 5:07 PM EDT 04/01/2024 6:33 PM EDT Bertin Calzada MD LAB BLOOD ORDER ALLIE [facility] [address] [place] [address] * CBC and differential (04/01/2024 5:07 PM EDT) WBC 4.90 4.0 - 11.0 K/uL [facility] RBC 5.04 4.32 - 5.72 M/uL [facility] HGB 15.4 13.5 - 17.5 g/dL [facility] HCT 45.9 38 - 50 % [facility] PLT 288 135 - 400 K/uL [facility] MCV 91.1 80 - 100 fL [facility] MCH 30.6 27 - 34 pg [facility] MCHC 33.6 31.5 - 36.5 g/dL [facility] RDW 13.2 11.9 - 14.8 % [facility] MPV 10.0 9.7 - 11.9 fl [facility] NRBC 0.00 0 /100 WBCs [facility] DIFF METHOD Auto [facility] NEUTS 62.0 % [facility] LYMPHS 24.7 % [facility] MONOS 8.8 % [facility] EOS 3.3 % [facility] BASOS 1.0 % [facility] Granulocytes, immature (%) 0.2 % [facility] ABSOLUTE NEUTS 3.04 1.8 - 7.5 K/uL [facility] ABSOLUTE LYMPHS 1.21 1 - 4.8 K/uL [facility] ABSOLUTE MONOS 0.43 0.1 - 0.9 K/uL [facility] ABSOLUTE EOS 0.16 0 - 0.4 K/uL [facility] ABSOLUTE BASOS 0.05 0 - 0.2 K/uL [facility] Granulocytes, immature 0.01 0 - 0.1 K/uL [facility] Blood 04/01/2024 5:07 PM EDT 04/01/2024 6:33 PM EDT Bertin Calzada MD LAB BLOOD ORDER ALLIE [facility] [address] [place] [address] documented in this encounter Visit Diagnoses Diagnosis Routine adult health maintenance- Primary Need for hepatitis C screening test Special screening examination for other specified viral diseases Screening for human immunodeficiency virus Special screening examination for other specified viral diseases Onychomycosis Dermatophytosis of nail Seasonal allergies Allergic rhinitis, cause unspecified Mild intermittent asthma without complication documented in this encounter Additional Health Concerns Assessment Noted Time PHQ-2 Depression Total Score: 0 03/31/20 8:54 PM EDT documented as of this encounter Care Teams Spreader Operator Relationship Specialty Start Date End Date Bertin Calzada MD [address] [address] [email or web address] PCP - General Internal Medicine 04/01/24 Catherine Pablo NP [address] [place] [phone] [email or web address] Insurance Assigned Provider 03/01/24 07/05/24 documented as of this encounter Additional Source Comments The information contained in this document represents components of the legal health record. It is not the complete legal health record.[facility]
--- OUTSIDE RECORDS SUMMARY | 2024-08-22 16:52 | XMS_ITS | Encounter Summary ---
Author Organization [facility] Address [phone] [place] [address] Care Team Providers Care Launch Commander [employer] Name Role Phone Catherine Pablo NP Unavailable [phone] Bertin Calzada MD Primary Care Provider Reason for Visit * Reason Comments Med Change Request Encounter Details Date Type Department Care Team ([facility] st Contact Info) Description 04/17/2024 Refill [facility] [address] [address] Bertin Calzada MD [address] [address] [email or web address] Med Change Request Social History Tobacco Use Types Packs/Day Years [...] as of this encounter Progress Notes * Dione Clark - 04/23/2024 8:24 AM EDT Images from the original note were not included. Bertin Calzada MD to Me 04/22/24 6:45 PM Just talked with patient on the phone. Completely asymptomatic now, had just wanted inhaler on hand in case symptoms developed. If symptoms do develop again, he will either pay for the qvar, or reach out to me regarding potentially starting albuterol. * Dione Clark - 04/22/2024 2:12 PM EDT Medication was denied * Dione Clark - 04/22/2024 9:53 AM EDT PA submitted through covermeds nidia vicente ([place]: [id number]) PA * Dione Clark - 04/22/2024 9:44 AM EDT Bertin Calzada MD to Me 04/18/24 11:06 AM Sounds like this inhaler might need a PA? In past he had been on Qvar, that was supposedly too expensive. I wrote for the Fluticasone Propionate yesterday. I just called pharmacy, and they said that I think it needs the PA first? * Jalyn Del Rio - 04/18/2024 9:05 AM EDT Pharmacy comment: Alternative Requested:QUANTITY LIMIT EXCEEDED Rx Care Gap Status - Instructions for Clinical Staff (prescriber discretion applies): n/a Visit Info Last visit: 04/01/2024 Bertin Calzada MD - Internal Medicine [facility] > Requested f/u: Return in about 1 year (around 04/01/2025). Upcoming visit: 04/13/2025 (Bertin Calzada MD - [facility]) ACTIONS TAKEN BY Jalyn Del Rio - Refill protocol passed: no action needed. Asthma / COPD Inhalers Rx Protocol Criteria met; renew for up to 12 months. - fluticasone propionate Visit in the past 14 months: Yes documented in this encounter Plan of Treatment Upcoming Encounters Date Type Department Care Team ([facility] Contact Info) Description 04/13/2025 10:30 AM EDT Appointment [facility] [address] [address] Bertin Calzada MD [address] [address] [email or web address] 04/22/2025 10:30 AM EDT Office Visit [facility] [address] [place] [phone] Kianna Fermin MD [address] [place] [phone] [email or web address] documented as of this encounter Visit Diagnoses Not on filedocumented in this encounter Additional Health Concerns Assessment Noted Time PHQ-2 Depression Total Score: 0 03/31/20 8:54 PM EDT documented as of this encounter Care Teams Launch Commander [employer] Relationship Specialty Start Date End Date Bertin Calzada MD [address] [address] [email or web address] PCP - General Internal Medicine 04/01/24 Catherine Pablo NP [address] [place] [address] [email or web address] Insurance Assigned Provider 03/01/24 07/05/24 documented as of this encounter Additional Source Comments The information contained in this document represents components of the legal health record. It is not the complete legal health record.[facility]
--- OUTSIDE RECORDS SUMMARY | 2024-08-22 16:52 | XMS_ITS | Encounter Summary ---
Author Organization [facility] Address [address] [place] [address] Care Team Providers Care Technology Solutions Architect Name Role Phone Sadia Werner MD Primary Care Provide r Reason for Visit * Reason Comments Constitutional Encounter Details Date Type Department Care Team (Late st Contact Info) Description 11/06/2023 9:30 AM EST Office Visit [id number] [place] [address] Melody Ahumada NP [address] [place] [address] Acute non-recurrent maxillary sinusitis (Primary Dx); Nasal congestion Social History Tobacco Use Types Packs/Day Years Used Date Smoking Tobacco: Never Smokeless Tobacco: Never Tobacco Cessation:Counseling Given: Yes Sex and Gender Information Value Date Recorded Sex Assigned at Not on file Gender Identity Not on file Sexual Orientation Not on file documented as of this encounter Last Filed Vital Signs Vital Sign Reading Time Taken Comments Blood Pressure 124/80 11/06/2023 9:41 AM EST Pulse 77 11/06/2023 9:41 AM EST Temperature 36.8 ??C (98.3 ??F) 11/06/2023 9:41 AM ES T Respiratory Rate 19 11/06/2023 9:41 AM EST Oxygen Saturation 100% 11/06/2023 9:41 AM EST Inhaled Oxygen Concentration - - Weight 102 kg (225 lb) 11/06/2023 9:41 AM EST Height 190.5 cm (6' 3) 11/06/2023 9:41 AM EST Body Mass Index 28.12 11/06/2023 9:41 AM EST documented in this encounter Functional Status Functional [...] this encounter Patient Instructions * Patient Instructions* Melody Segura NP - 11/06/2023 9:30 AM EST Seek immediate emergency medical attention if you experience severe or worsening abdominal pain, difficulty swallowing, stiff neck, shortness of breath, coughing or vomiting up blood, chest pain, increased fever, unexplained weight loss, or blood in stool. If your symptoms do not improve within 72 hours, follow up with [facility] or your primary care provider. If your symptoms are not resolved within 2 weeks, follow up with your primary care provider. If you are taking kcjq-gyx-xqpkwhl medication(s), follow the dosing instructions included in the packaging, unless otherwise instructed by your provider. It is important to notify your primary care provider of all medications you are taking, including vhaw-cla-ykhpcqw medications. /[id number]/vs1 Sinusitis What is a Sinusitis? Sinusitis is redness, soreness and inflammation (or swelling) of the sinuses. The sinuses are air pockets within the bones of your face (above and below your eyes and in the middle of your forehead).Mucus normally drains out of the sinus space and air circulates through by way of your nose. The inflammation with sinusitis traps the air and mucus allowing bacterial and other germs to grow and possibly cause an infection. Causes of sinusitis Most sinus infections are caused by viruses (colds, upper respiratory infections) or allergies. Less common are infections caused by bacteria. Symptoms of sinusitis The symptoms of sinusitis (facial pain or pressure, headache, cough, feeling tired, etc) are similar if your condition is caused by a viral or bacterial infection. Treatment of sinusitis Most cases of sinusitis are related to a viral infection and resolve on their own within 10 days. Viral infections do not require antibiotic treatment however over the counter medications may be recommended to help relieve symptoms such as acetaminophen or ibuprofen for pain, saline sprays to moisten and clean the sinuses and/or decongestants. Take these medicines only as directed by your health care provider. ??? REMEMBER: Do not give aspirin to children because of the association with Camden???s syndrome anddecongestants such as pseudoephedrine (i.e. Sudafed) should not be taken if you have high blood pressure, heart disease, or a history of stroke. Sinusitis caused by a bacterial infection is treated with an antibiotic. These are medicines that will help kill the bacteria causing the infection. Home Care Recommendations: ??? Rest and drink plenty of water/fluids (unless your doctor has told you otherwise) ??? Use a humidifier or run a hot shower to create steam 3-4 times a day for approximately 10 minutes at a time (This helps lessen congestion) ??? Use salt water sprays (saline sprays) as directed ??? Apply a warm, moist washcloth to your face 3-4 times a day ??? If you were prescribed an antibiotic finish it all even if you start to feel better ??? Avoid tobacco smoke and other environmental irritants Seek Medical Care Immediately from your primary care doctor, urgent care center or emergency room, if: ??? You have increasing pain or severe headaches ??? You have nausea, vomiting, or drowsiness ??? You have swelling around your face ??? You have vision problems ??? You have a stiff neck ??? You have trouble breathing ??? You develop a fever of 101.2 or higher. Follow up with your primary care provider if your symptoms get worse or do not improve within 3 to 5 days. documented in this encounter Progress Notes * Melody Segura NP - 11/06/2023 9:30 AM EST Subjective: Patient ID: Martin Vicente is a 43 y.o. male here for a sick visit. HPI Patient presents with sinus pain, nasal congestion, chills, fever (101) last night, body aches and a sore throat. He reports these symptoms started over giving, however he thought the symptoms were improving slowly but 2 days ago his symptoms worsened. Reports his is sick at home as well. He has been taking sudafed and ibuprofen with no effect. Denies any additional symptoms. Constitutional Patient presents with: fever and chills Presenting symptoms: fever, headaches, myalgias and sore throat Presenting symptoms: no fatigue and no rhinorrhea Presenting symptoms comment: Nasal congestion, sinus pain Severity: Moderate Onset quality: Gradual Duration of current symptoms: 14 days Timing: Gradually worsening Chronicity: New Treatments tried: OTC medication Response to treatment: No relief Associated symptoms: chills and nasal congestion Associated symptoms: no abdominal pain, no arthralgias, no chest pain, no decreased appetite, no dizziness, no ear pain, no neck stiffness and no lethargy Risk factors: known exposure to illness or sick contacts Recent travel: None Zika exposure risk: None For patients with Menopausal Symptoms: Associated symptoms: no arthralgias Review of Systems Constitutional: Positive for chills and fever. Negative for activity change, appetite change, decreased appetite, diaphoresis, fatigue and unexpected weight change. HENT: Positive for congestion, sinus pressure, sinus pain and sore throat. Negative for dental problem, drooling, ear discharge, ear pain, facial swelling, hearing loss, mouth sores, nosebleeds, postnasal drip, rhinorrhea, sneezing, tinnitus, trouble swallowing and voice change. Respiratory: Negative. Cardiovascular: Negative. Negative for chest pain. Gastrointestinal: Negative. Negative for abdominal pain. Musculoskeletal: Positive for myalgias. Negative for arthralgias and neck stiffness. Skin: Negative. Neurological: Positive for headaches. Negative for dizziness, weakness and light-headedness. Social History Tobacco Use Smoking Status Never Smokeless Tobacco Never History reviewed. No pertinent past medical history. Past Surgical History: Procedure Laterality Date ??? FEMUR SURGERY History reviewed. No pertinent family history. Objective: Physical Exam Constitutional: General: He is awake. He is not in acute distress. Appearance: Normal appearance. He is not ill-appearing. HENT: Head: Normocephalic and atraumatic. Right Ear: Hearing, tympanic membrane, ear canal and external ear normal. Left Ear: Hearing, tympanic membrane, ear canal and external ear normal. Nose: Congestion present. No rhinorrhea. Right Turbinates: Not enlarged, swollen or pale. Left Turbinates: Not enlarged, swollen or pale. Right Sinus: Maxillary sinus tenderness and frontal sinus tenderness present. Left Sinus: Maxillary sinus tenderness and frontal sinus tenderness present. Mouth/Throat: Lips: [place]. Mouth: Mucous membranes are moist. Pharynx: Oropharynx is clear. Uvula midline. No pharyngeal swelling, oropharyngeal exudate, posterior oropharyngeal erythema or uvula swelling. Tonsils: No tonsillar exudate or tonsillar abscesses. 1+ on the right. 1+ on the left. Eyes: Pupils: Pupils are equal, round, and reactive to light. Cardiovascular: Rate and Rhythm: Normal rate and regular rhythm. Pulses: Normal pulses. Heart sounds: Normal heart sounds. Pulmonary: Effort: Pulmonary effort is normal. No tachypnea or bradypnea. Breath sounds: Normal breath sounds and air entry. No stridor, decreased air movement or transmitted upper airway sounds. No decreased breath sounds, wheezing, rhonchi or rales. Lymphadenopathy: Head: Right side of head: No tonsillar adenopathy. Left side of head: No tonsillar adenopathy. Cervical: No cervical adenopathy. Skin: General: Skin is warm. Neurological: Mental Status: He is alert and oriented to person, place, and time. Psychiatric: Mood and Affect: Mood normal. Behavior: Behavior normal. Behavior is cooperative. Vitals: 11/06/23 0941 BP: 124/80 Pulse: 77 Resp: 19 Temp: 98.3 ??F (36.8 ??C) SpO2: 100% Assessment/Plan: Based on today's visit:history and physical exam only, as no relevant testing deemed necessary patient's visit diagnosis is/includes 1. Acute non-recurrent maxillary sinusitis 2. Nasal congestion Patient does not have a history of chronic conditions. Treatment plan includes: Orders Placed: Orders Placed This Encounter Procedures ??? LumiraDX SARS-COV-2 Rapid Result Antigen Test ??? Influenza Molecular POCT Medications ordered this visit Signed Prescriptions Disp Refills ??? amoxicillin-clavulanate (AUGMENTIN) 875-125 mg tablet 10 tablet 0 Sig: Take 1 tablet by mouth 2 (two) times a day for 5 days Provider Recommendations You should be feeling better within 48 hours of starting an antibiotic, however be sure to finish the full course of the prescribed medication. Do not drink alcohol with while taking antibiotics. Informed patient that it may take up to 2 weeks for the symptoms of acute sinusitis to completely resolve. Advised Infection control (e.g., handwashing, cough/sneezing etiquette, etc.). Symptomatic treatment and management: Plenty of rest and fluids. Alternate Tylenol or Ibuprofen forpain, fever and inflammation. Nasal sprays as advised. For intranasal steroid use: Look down at your toes and spray up your nose. Do not blow your nose for 15 minutes after use. Warm facial packs (e.g., warm washcloth, hot water bottle, or gel pack) applied to face for 5-10 minutes at least 3 timesa day. Avoid multi-symptom cold relief medications due to the risk of over medicating. Seek immediate medical care if the following symptoms develop: ?? Worsening cough ?? Shortness of breath ?? Difficulty breathing ?? Chest pain ?? Inability to swallow, eat, or drink ?? Stiff neck ?? Temperature is greater than 100.4??F ?? Breathing fast (24 breaths/min or faster) ?? Heart rate is greater than 100 ?? Dizziness or weakness At completion of this visit, the patient verbally demonstrates understanding of diagnosis, treatment, and plan. Advised to follow-up at [facility], PCP, or local urgent care with any worsening signs/symptoms, or no improvement with treatment plan within 48 hours. When asked, patient denies any further questions or concerns today. documented in this encounter Plan of Treatment Not on file documented as of this encounter Procedures Procedure Name Priority Date/Time Associated Diagnosis Comments LUMIRADX SARS-COV-2 RAPID RESULT ANTIGEN TEST Routine 11/06/2023 9:48 AM EST Nasal congestion INFLUENZA MOLECULAR POCT Routine 11/06/2023 9:48 AM EST Nasal congestion documented in this encounter Results * LumiraDX SARS-COV-2 Rapid Result Antigen Test (11/06/2023 9:48 AM EST) LumiraDX SARS-COV-2 Rapid Result Antigen Test Negative Negative, Invalid, Not Tested, ERRONEOUS GIL [id number] INTERNAL CONTROLS VALID Yes--Test working appropriately JEFFERY [id number] Expiration Date 06/28/2024 JEFFERY [id number] Lot Number [id number] JEFFERY [id number] LUMIRA TEST BRAND Lumiradx Sars-Cov-2 AG Test GIL [id number] Other 11/06/2023 9:48 AM EST Melody Ahumada MACHINE TOOL ELECTRICIAN POINT OF CARE TEST O RDERABLES Performing Organization Address [facility] de Phone Number JEFFERY [id number] [address] [place] [address] * Influenza Molecular POCT (11/06/2023 9:48 AM EST) POC MOLECULAR INFLUENZA A AGN Negative Negative, Invalid, Not Tested, ERRONEOUS GIL [id number] POC MOLECULAR INFLUENZA B AGN Negative Negative, Invalid, Not Tested, ERRONEOUS GIL [id number] INTERNAL CONTROLS VALID Yes--Test working appropriately JEFFERY [id number] Expiration Date 11/11/2024 JEFFERY [id number] Lot Number [id number] JEFFERY [id number] TEST BRAND NAME _ MOLECULAR FLU ID Now Flu GIL [id number] Other 11/06/2023 9:48 AM EST Melody Ahumada NP POINT OF CARE TEST O RDERANKECHI Performing Organization Address [facility] de Phone Number JEFFERY [id number] [address] [place] [address] documented in this encounter Visit Diagnoses Diagnosis Acute non-recurrent maxillary sinusitis- Primary Nasal congestion Other diseases of nasal cavity and sinuses documented in this encounter Care Teams Technology Solutions Architect Relationship Specialty Start Date End Date Sadia Werner MD [facility] [address] [place] [phone] PCP - General Internal Medicine 02/27/23 documented as of this encounter
--- OUTSIDE RECORDS SUMMARY | 2024-08-22 16:52 | XMS_ITS | Encounter Summary ---
Author Organization [facility] Address [phone] [place] [address] Care Team Providers Care Design Transferrer Name Role Phone Catherine Pablo NP Unavailable Bertin Calzada MD Primary Care Provider Encounter Details Date Type Department Care Team (Late st Contact Info) Description 04/17/2024 Orders Only [facility] [place] [address] [address] Bertin Calzada MD [address] [address] [email or web address] Social History Tobacco Use Types Packs/Day Years [...] on file documented as of this encounter Plan of Treatment Upcoming Encounters Date Type Department Care Team (Late st Contact Info) Description 04/13/2025 10:30 AM EDT Appointment [facility] [place] [address] [address] Bertin Calzada MD [address] [address] [email or web address] 04/22/2025 10:30 AM EDT Office Visit [email or web address] [address] [address] Kianna Fermin MD [address] [place] [address] [email or web address] documented as of this encounter Visit Diagnoses Not on filedocumented in this encounter Additional Health Concerns Assessment Noted Time PHQ-2 Depression Total Score: 0 03/31/20 24 8:54 PM EDT documented as of this encounter Care Teams Design Transferrer Relationship Specialty Start Date End Date Bertin Calzada MD [address] [address] PCP - General Internal Medicine 04/01/24 Catherine Pablo NP [address] [place] [address] Insurance Assigned Provider 03/01/24 07/05/24 documented as of this encounter Additional Source Comments The information contained in this document represents components of the legal health record. It is not the complete legal health record.[facility]
--- OUTSIDE RECORDS SUMMARY | 2024-08-22 16:52 | XMS_ITS | Encounter Summary ---
Author Organization [facility] Address [phone] [facility] [place] [address] Care Team Providers Care Anesthesia Resident Name Role Phone Sadia Werner MD Primary Care Provide r Reason for Visit * Reason Comments Follow-up lt hip * Consultation (Routine) - Closed Specialty Diagnoses / Procedures Referred By Contact Referred To Contact Orthopedic Surgery / Orthopaedic Surgery Diagnoses Harv pilg hmo/ left hip/ no x rays/341/bjc Procedures NEW PATIENT Sadia Werner MD [address] [place] [address] Jimy Elkins MD [address] [place] [address] Email: [email or web address] Referral ID Status Reason Start Date Expiration Date Visits Re quested Visits Authorized [id number] Closed 02/28/2018 02/27/2019 3 3 Encounter Details Date Type Department Care Team (Late st Contact Info) Description 03/04/2018 9:30 AM EDT [facility] [address] [facility] [address] [place] [address] Jimy Elkins MD [address] [place] [address] [email or web address] Pain of left hip joint (Primary Dx) Social History Tobacco Use Types Packs/Day Years Used Date Smoking Tobacco: Never Assessed Sex and Gender Information Value Date Recorded Sex Assigned at Not on file Gender Identity Not on file Sexual Orientation Not on file documented as of this encounter Progress Notes * Jimy Elkins MD - 03/04/2018 9:30 AM EDT Chief Complaint: Chief Complaint Patient presents with ??? Follow-up lt hip Patient name: Martin Vicente : [id number] HPI: The patient is a 37-year-old the athletic male with discomfort involving his left hip that's been present off and on over the last several months. 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 This was treated with an intramedullary nail. 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 Over the winter while he was training he added an Erg machine and noted onset of some discomfort in his left hip. Notes it in the buttock region somewhat in the low back as well as in the groin. To be worsewith athletics although he can cycle without trouble. He has generalized tightness and stiffness. Here primarily to evaluate the status of his hips in view of his exercise regimen. Past medical history has been reviewed in the record including problems, medications, allergies, previous surgery, smoking and etoh history, family history and social history. Review of Systems: General :Negative Respiratory:Negative Cardiovascular : Negative Musculoskeletal: Negative Neurological:Negavtive There were no vitals taken for this visit. There is no height or weight on file to calculate BMI. Ortho Physical Exam: General: Awake and alert and Oriented x3, Mental status: alert, oriented to person, place, and time Skin: normal coloration and turgor, no rashes, no suspicious skin lesions noted. Extremity: Patient is a fit athletic gentleman in no apparent distress. In stance his right hemipelvis is approximately 1.5 cm higher than his left reflecting his femur fracture and femoral overgrowth as a result of the healing of the fracture when he was in his teens. He has some tightness with forward flexion and his hamstrings and feels somewhat on the left side. Resistance to hamstring function reveals some mild tightness in the proximal we'll hamstring on the left. There is visible atrophyof his right quadriceps which has been present since the femoral fracture. Nonantalgic gait. Spine extension and side bending was is minimal lower left sided discomfort. In supine position patient has a negative straight leg raise. Flexion well beyond 90?? as well as adduction and internal rotation, some mild groin sensitivity. This is not present on the right side. Impingement sign is only minimally positive. Dee test is negative. Side lying abduction strength is 5 out of 5. There is no tenderness to palpation about the hip buttock or back. Resistance to active hip flexion reveals no discomfort. Radiographs, MRI, CT, Other tests: Regress obtained in the office today. AP pelvis as well as AP lateral view of the left hip reveal no joint space narrowing, no crossover sign, modest increase in alpha angle on the coronal film measured at about 70-5??. Rotational view reveals normal femoral head neck offset. Assessment: Left hip strain likely related to training issues. No convincing evidence of labral abnormality. Mild propensity towards impingement with a modest cam lesion. Plan: Suggest modify Training regimen. This is occurring already as he is working out in the gym inis back on his bike. See what happens over the next few months. She doesn't issues discussed. He will follow-up on an as-needed basis. documented in this encounter Plan of Treatment Upcoming Encounters Date Type Department Care Team (Late st Contact Info) Description 04/13/2025 10:30 AM EDT [facility] [place] [address] [address] Bertin Calzada MD [address] [address] [email or web address] 04/22/2025 10:30 AM EDT Office Visit [facility] [address] [place] [address] [place] [address] Kianna Fermin MD [address] [place] [address] [place] [address] documented as of this encounter Visit Diagnoses Diagnosis Pain of left hip joint- Primary documented in this encounter Care Teams Anesthesia Resident Relationship Specialty Start Date End Date Sadia Werner MD [email or web address] PCP - General Internal Medicine 02/28/1810/24 documented as of this encounter Additional Source Comments The information contained in this document represents components of the legal health record. It is not the complete legal health record.[facility]
--- OUTSIDE RECORDS SUMMARY | 2024-08-22 16:52 | XMS_ITS | Encounter Summary ---
Author Organization [facility] Address [phone] [address] [place] [address] Care Team Providers Care Print Traffic Manager Name Role Phone Catherine Pablo NP Unavailable [phone] Bertin Calzada MD Primary Care Provider Reason for Visit * Reason Comments Lesion Of Concern * Consultation (Elective) - Pending Review Specialty Diagnoses / Procedures Referred By Ben cruz Referred To Contact Dermatology Bertin Calzada MD [address] [address] Email: Kianna Fermin MD [address] [place] [phone] Email: Referral ID Status Reason Start Date Expiration Date V isits Requested Visits Authorized [id number] Pending Review 04/09/2024 04/09/2025 6 6 Encounter Details Date Type Department Care Team (Late st Contact Info) Description 04/22/2024 10:30 AM EDT Office Visit [facility] [address] [place] [address] Kianna Fermin MD [address] [place] [address] [email or web address] Actinic keratosis (Primary Dx); Lentigo; Onychomycosis Social History Tobacco Use Types Packs/Day Years [...] as of this encounter Progress Notes * Kianna Fermin MD - 04/22/2024 10:30 AM EDT Subjective: Patient ID: Martin Vicente is a 44 y.o. male. HPI New Patient 04/14/2024 FBE, SB Full Body Skin Exam Visit: Pt presents today for general skin examination for skin cancer surveillance and monitoring nevi Pt reports the following areas of concern: Patient notes no specific lesions of concern but has multiple nevi/skin lesions that are difficult to self-monitor. He has toe nail fungus and interested intreatments. Has tried OTC. Dermatology History: Prior h/o skin cancer/AKs include: None Family h/o skin CA includes: Maternal grandmother and aunt both had Melano Current sun protection measures include: sunscreen. History of sunburns: In childhood History of tanning ruelas use: None On going dermatology problem list: skin cancer surveillance Social History: Smoking: No Alcohol: Yes Lives alone? 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 Objective: Physical Exam Well appearing pt in NAD; mood and affect are wnl A full skin examination was performed including scalp, head, eyes, ears, nose, lips, neck, chest, axillae, abdomen, back, buttocks, bilateral upper extremities, bilateral lower extremities, hands, feet, fingers, toes, fingernails, and toenails. All findings within normal limits unless otherwise noted below: - gritty macule on the left suprabrow (1) and nasal dorsum (1) - right dorsal hand with 4 mm blue papule - scattered mckeon macules with moth eaten borders on sun exposed surfaces of the trunk and extremities - yellow discoloration of all 10 toe nails Assessment/Plan: Solar lentigines - Counseled about safe sun practices, including but not limited to sun-avoidance (especially duringpeak hours from 10 AM to 4 PM), UV-tanning bed avoidance, and sun-protection (regular sunscreen useon sun-exposed skin with broad spectrum SPF 30+ reapplied every 2-3 hours, sunglasses use, broad-brimmed hat use, wearing UV-filtering/tightly woven clothing [i.e. Coolibar, DAVEY, UV Skinz]). - Discussed ABCDE criteria, routine self skin exams, and need to report skin lesions that are changing, failing to heal, or otherwise concerning to patient. 2. Blue nevus - Reassurance - Notify me with changes 3. Oncyhomycosis -- Discussion of treatment options (oral antifungal vs topical antifungal vs no treatment) as well as difficulty in treating overall -- After discussion, plan for: --Penlac topically once daily x up to 48 weeks. Will apply to nail and surrounding nail daily and use alcohol swab every 7 days to remove build up of medication. 4. Actinic keratoses Actinically damaged skin (chronic) with actinic keratoses and elevated risk of squamous cell cancer: - sequelae of sun exposure: recommended careful sun protection with broad- spectrum UVB/UVA sunscreens with SPF 30 or greater to minimize risk of future actinic keratoses and lower risk of malignancy over the watermelon harvesting supervisor - Educated the patient on the premalignant nature of these lesions and their low but non-zero likelihood of transformation into skin cancer. - LN2 was applied to 2 lesions on the left suprabrow and nasal dorsum (see note below). PROCEDURE NOTE: CRYOTHERAPY, PREMALIGNANT Diagnosis: Actinic keratosis Site(s): as per above Number of lesions: 2 The risk of scarring, blistering, pain, atrophy, and dyspigmentation was explained to the patient. The benefit of potentially eradicating the lesion was explained to the patient. The patient agreed to the procedure after being informed of the risks and benefits. Procedure: Liquid nitrogen was applied for approximately 5 seconds x 2 cycles to each lesion with at least a 15 second thaw between each cycle. There were no complications and the patient tolerated the procedure well. RTC 1 year, sooner PRN Kianna Fermin MD [facility] Problem List Items Addressed This Visit None documented in this encounter Plan of Treatment Upcoming Encounters Date Type Department Care Team (Late st Contact Info) Description 04/13/2025 10:30 AM EDT [facility] [place] [address] [address] Bertin Calzada MD [address] [address] [email or web address] 04/22/2025 10:30 AM EDT Office Visit [employer] [address] [place] [address] Kianna Fermin MD [address] [place] [phone] [email or web address] Scheduled Referrals Name Type Priority Associated Diagnoses Order Schedule Ambulatory referral to [facility] Dermatology Outpatient Referral Routine Ordered: 04/01/2024 documented as of this encounter Visit Diagnoses Diagnosis Actinic keratosis- Primary Lentigo Other dyschromia Onychomycosis Dermatophytosis of nail documented in this encounter Additional Health Concerns Assessment Noted Time PHQ-2 Depression Total Score: 0 03/31/20 24 8:54 PM EDT documented as of this encounter Care Teams Print Traffic Manager Relationship Specialty Start Date End Date Bertin Calzada MD [address] [address] [email or web address] PCP - General Internal Medicine 04/01/24 Catherine Pablo NP [address] [place] [address] [email or web address] Insurance Assigned Provider 03/01/24 07/05/24 documented as of this encounter Additional Source Comments The information contained in this document represents components of the legal health record. It is not the complete legal health record.[facility]
--- OUTSIDE RECORDS SUMMARY | 2024-08-22 16:52 | XMS_ITS | Clinical Summary ---
Author Organization [facility] [employer] Address [address] [place] [address] Care Team Providers Care Bioprocess Development Engineer Name Role Phone Sadia Werner MD Primary Care Provide r Allergies No known active allergies Medications No [...] Mass Index 28.12 11/06/2023 9:41 AM EST Plan of Treatment Health Maintenance Due Date Last Done Comments Depression: Screening Annually using PHQ-2/9 in Adults 18 yrs or above (or HM Modifier)([facility]) 1998 Hepatitis C Virus Infection in Adolescents and Adults: Screening (or Modifier) ([facility]) 1998 SDOH Screening Reminder: Annually for all adults ([facility]) 1998 Lipid Screening: Every 5 yrs for Men aged 35+ (or HM Modifier) ([facility]) 2016 DTaP/Tdap/Td Vaccines ([facility]) (6 - Td or Tdap) 07/03/2021 07/03/2011, 01/08/2003, 11/09/1994, Additional history exists COVID-19 Vaccine Screening: Initial Series and Booster Status ([facility]) (2022- season) 2023 10/28/2021, 04/06/2021, 03/10/2021 Flu Vaccination: Yearly for ages 18mos through 64 years (or Modifier)([facility]) 06/26/2024 Zoster/Shingles Vaccine Series Screening: Adults aged 18+ yrs (or HM Modifiers)([facility]) (1 of 2) 2030 Pneumococcal Vaccination Screening: Pts 0-19 & 19-64 yrs of age ([facility]) Aged Out No longer eligible based on patient's age to complete this topic Medical Devices Not on file Care Teams Bioprocess Development Engineer Relationship Specialty Start Date End Date Sadia Werner MD [facility] [employer] [address] [place] [address] [id number] PCP - General Internal Medicine 02/27/23
--- OUTSIDE RECORDS SUMMARY | 2024-08-22 16:52 | XMS_ITS | Referral Summary ---
Author Organization [facility] Address [address] [place] [address] Care Team Providers Care Merchandising Intern Name Role Phone Pcp, No Unavailable Unavailable [...] 06/12/2022 3:09 PM EDT Plan of Treatment Not on file Care Teams Merchandising Intern Relationship Specialty Start Date End Date Pcp, No PCP - Generic [facility] PCP 06/12/22
--- OUTSIDE RECORDS SUMMARY | 2024-08-22 16:52 | XMS_ITS | Encounter Summary ---
Author Organization [facility] Address [phone] [place] [address] Care Team Providers Care Grain Merchandiser Name Role Phone Catherine Pablo NP Unavailable Bertin Calzada MD Primary Care Provider Reason for Visit * Reason Comments Med Change Request Encounter Details Date Type Department Care Team ([facility] st Contact Info) Description 04/17/2024 Refill [facility] [place] [address] [address] Bertin Calzada MD [address] [address] [email or web address] Change Request Social History Tobacco Use [...] encounter Progress Notes * Dione Clark - 04/17/2024 2:07 PM EDT Pharmacy comment: Alternative Requested:VERY HIGH COPAY;IS THERE ANOTHER ALTERNATIVE. documented in this encounter Plan of Treatment Upcoming Encounters Date Type Department Care Team (Late st Contact Info) Description 04/13/2025 10:30 AM EDT [facility] [place] [address] [address] Bertin Calzada MD [address] [address] [email or web address] 04/22/2025 10:30 AM EDT Office Visit [facility] [address] [place] [address] Kianna Fermin MD [address] [place] [address] [email or web address] documented as of this encounter Visit Diagnoses Not on filedocumented in this encounter Additional Health Concerns Assessment Noted Time PHQ-2 Depression Total Score: 0 03/31/20 24 8:54 PM EDT documented as of this encounter Care Teams Grain Merchandiser Relationship Specialty Start Date End Date Bertin Calzada MD [address] [address] [email or web address] PCP - General Internal Medicine 04/01/24 Catherine Pablo NP [address] [place] [phone] Insurance Assigned Provider 4/6/24 8/10/24 documented as of this encounter Additional Source Comments The information contained in this document represents components of the legal health record. It is not the complete legal health record.[facility]
--- OUTSIDE RECORDS SUMMARY | 2024-08-22 16:52 | XMS_ITS | Encounter Summary ---
Author Organization [facility] Address [phone] [place] [address] Care Team Providers Care Cold Saw Operator Name Role Phone Catherine Pablo NP Unavailable [phone] Bertin Calzada MD Primary Care Provider Reason for Visit * Reason Onset Date Comments Medication Problem 04/01/2024 Encounter Details Date Type Department Care Team ([facility] st Contact Info) Description 04/01/2024 Telephone [facility] [place] [address] [address] Bertin Calzada MD [address] [address] [email or web address] Medication Problem Social History Tobacco Use Types Packs/Day Years [...] as of this encounter Progress Notes * Neli Sauceda - 04/01/2024 4:19 PM EDT Inhaler - Qvar Redi, Flovent or whatever PCP preference per visit [facility] [address] [place] [address] documented in this encounter Plan of Treatment Upcoming Encounters Date Type Department Care Team (Late st Contact Info) Description 04/13/2025 10:30 AM EDT [facility] [place] [address] [address] Bertin Calzada MD [address] [address] [email or web address] 04/22/2025 10:30 AM EDT Office Visit [facility] [employer] [address] [place] [address] Kianna Fermin MD [address] [place] [address] [email or web address] documented as of this encounter Visit Diagnoses Not on filedocumented in this encounter Additional Health Concerns Assessment Noted Time PHQ-2 Depression Total Score: 0 03/31/20 8:54 PM EDT documented as of this encounter Care Teams Cold Saw Operator Relationship Specialty Start Date End Date Bertin Calzada MD [address] [address] [email or web address] PCP - General Internal Medicine 04/01/24 Catherine Pablo NP [address] [place] [address] [email or web address] Insurance Assigned Provider 03/01/24 07/05/24 documented as of this encounter Additional Source Comments The information contained in this document represents components of the legal health record. It is not the complete legal health record.[facility]
[2024-08-22] MEDS: Cephalexin 500 MG CAP PO (18:03)
== END 2024-08-22 18:03 | disposition home or self-care (01) ==
PROVIDERS: Emergency Provider Emergency Medicine
DX: S01.81XA Laceration without foreign body of other part of head, initial encounter (principal); M89.9 Disorder of bone, unspecified; V18.4XXA Pedal cycle driver injured in noncollision transport accident in traffic accident, initial encounter; Y93.55 Activity, bike riding; Y92.89 Other specified places as the place of occurrence of the external cause
CPT/HCPCS: 99284; 70450; 72125; 99283